=== PATIENT | female | born 1975 | race Caucasian/White ===

== ENCOUNTER 2017-04-15 22:10 | Emergency (ER) | payer OTHER ==
[~2017-04-15] VITALS: Ht 152.4 cm; Wt 54.4 kg
[2017-04-15 22:15] VITALS: BP 128/75
--- NOTE | 2017-04-15 22:43 | NUR ---
AMBULATED TO ER BED 7
--- NOTE | 2017-04-15 22:53 | NUR ---
PATIENT PRESENTS TO ED WITH RT LEG PAIN , REDNESS, SWELLING, FOR A WEEK . PT STATES SHE LOST HER ANTIBIOTIC AND HER CELLULITIS GOT WORST . DENIES N/V/D; SKIN IS PINK/WARM/DRY; AAOX4 WITH EVEN AND STEADY GAIT; LUNGS CLEAR BL; HR EVEN AND REGULAR; PT DENIES ANY FEVER, CP, SOB, OR COUGH AT THIS TIME; PATIENT STATES PAIN OF 10/10 AT THIS TIME;PATIENT POSITIONED FOR COMFORT; HOB ELEVATED; BEDRAILS UP X2; BED DOWN. ER MD MADE AWARE OF PT STATUS.
[2017-04-15] MEDS ORDERED: HYDROcodone/APAP 5/325 MG 1 TAB TAB PO ONE (23:10)
--- NOTE | 2017-04-15 23:23 | NUR ---
PT RESTING ON BED;NO ACUTE DISTRESS NOTED;WILL CONTINUE TO MONITOR PT.
[2017-04-15 23:28] VITALS: BP 124/76
--- NOTE | 2017-04-15 23:28 | NUR ---
Patient discharged with v/s stable. Written and verbal after care instructions given and explained. Patient alert, oriented and verbalized understanding of instructions. Ambulatory with steady gait. All questions addressed prior to discharge. ID band removed. Patient advised to follow up with PMD. Rx of CLINDAMYCIN AND NAPROSYN given. Patient educated on indication of medication including possible reaction and side effects. Opportunity to ask questions provided and answered.
== END 2017-04-15 23:29 | disposition home or self-care (01) ==
LOC: MED 22:10
DX: L03.115 Cellulitis of right lower limb (principal); Z90.49 Acquired absence of other specified parts of digestive tract
CPT/HCPCS: 90471; 90715; 99283

== ENCOUNTER 2017-04-23 12:14 | Emergency (ER) | payer OTHER ==
[~2017-04-23] VITALS: Ht 152.4 cm; Wt 54.4 kg
[2017-04-23 12:24] VITALS: BP 123/88
--- NOTE | 2017-04-23 13:34 | NUR ---
WHEELCHAIR BACK TO BED 7
--- NOTE | 2017-04-23 13:35 | NUR ---
Note undone in EDM - 04/23/17 at 1746 by [email or web address] 41F BIB FRIENDS C/O RT LOWER LEG PAIN X 2 WEEKS S/P HITTING LEG RECYCLING. HX: PT DENIES RX: ANTIBIOTIC FROM PREVIOUS VISIT. SKIN IS PINK/WARM/DRY; AAOX4 WITH EVEN AND STEADY GAIT; LUNGS CLEAR BL; HR EVEN AND REGULAR; PATIENT STATES PAIN OF 10/10 AT THIS TIME; VSS; PATIENT POSITIONED FOR COMFORT; HOB ELEVATED; BEDRAILS UP X2; BED DOWN. ER MD MADE AWARE OF PT STATUS.
--- NOTE | 2017-04-23 13:44 | NUR ---
PT TAKEN TO X RAY
--- NOTE | 2017-04-23 14:10 | NUR ---
Patient being evaluated by SERGEY DOZIER at bedside.
[2017-04-23] MEDS ORDERED: diphenhydrAMINE 50 MG/ML VIAL IVP ONE (14:15)
[2017-04-23] MEDS ORDERED: MORPHINE SULFATE 5 MG/ML VIAL IM ONE (14:15)
[2017-04-23] MEDS ORDERED: VANCOMYCIN 1,000 MG in DEXTROSE 5% 250 ML IV ONE (14:15)
[2017-04-23] MEDS ORDERED: MORPHINE SULFATE 5 MG/ML VIAL IVP ONE (14:30)
[2017-04-23] MEDS ORDERED: VANCOMYCIN 1,000 MG VIAL ONE (14:35)
[2017-04-23] MEDS ORDERED: LIDOCAINE 1% ED 50 ML ONE ×2 (15:09→18:16)
[2017-04-23] MEDS ORDERED: ONDANSETRON 4 MG ODT PO ONE (15:15)
[2017-04-23] MEDS ORDERED: LIDOCAINE 1% 500 MG/50 ML VIAL INJ ONE (15:15)
[2017-04-23 15:39] LABS: BASOPHILS # (AUTO) 0.1 K/uL (0.00-0.22); BASOPHILS % (AUTO) 1.1 % (0.0-2.0); EOSINOPHILS # (AUTO) 0.2 K/uL (0-0.4); HEMATOCRIT 36.1 % (36-48); HEMOGLOBIN 11.6 g/dL (12.0-16.0); LYMPHOCYTES # (AUTO) 1.6 K/uL (2.5-16.5); MEAN CORPUSCULAR HEMOGLOBIN 26 pg (27-31); MEAN CORPUSCULAR HGB CONC 32 g/dL (33-37); MEAN CORPUSCULAR VOLUME 81 fL (80-94); MONOCYTES # (AUTO) 0.5 K/uL (0.8-1.0); MONOCYTES % (AUTO) 5.3 % (1.7-9.3); NEUTROPHILS % (AUTO) 74.6 % (42.2-75.2); PLATELET COUNT (AUTO) 380 K/uL (140-450); RED BLOOD CELL COUNT(AUTO) 4.47 MIL/uL (4.20-5.40); RED CELL DISTRIBUTION WIDTH 15.3 % (11.6-13.7); WHITE BLOOD COUNT (AUTO) 9.4 K/uL (4.8-10.8)
[2017-04-23] MEDS ORDERED: NACL 0.9% 1,000 ML IV ONE (15:40)
[2017-04-23 15:48] LABS: ALBUMIN 3.9 g/dL (3.4-5.0); ANION GAP 11.1 (8-16); CALCIUM 8.8 mg/dL (8.5-10.1); CARBON DIOXIDE 28.9 mmol/L (21-32); CREATININE 0.6 mg/dL (0.6-1.3); TOTAL BILIRUBIN 0.4 mg/dL (0.0-1.0); TOTAL PROTEIN, SERUM 8.5 g/dL (6.4-8.2)
--- NOTE | 2017-04-23 15:50 | NUR ---
I&D DONE BY SERGEY DOZIER. PT TOLERATED PROCEDURE WELL.
[2017-04-23] MEDS ORDERED: MORPHINE SULFATE 4 MG/ML SYR IVP ONE ×2 (16:05→17:50)
--- NOTE | 2017-04-23 16:20 | NUR ---
WOUND CARE DONE BY JEANNIE PEACE.
--- NOTE | 2017-04-23 16:28 | NUR ---
X RAY AT BEDSIDE.
--- NOTE | 2017-04-23 17:20 | NUR ---
Patient appears to be resting comfortably in bed. Vital Signs within normal limits. Respirations even and unlabored.WILL CONTINUE TO MONITOR.
--- NOTE | 2017-04-23 17:46 | NUR ---
41F BIB FRIENDS C/O OPEN WOUND & ABSCESS TO RT SCHWARTZ PAIN X 2 WEEKS S/P HITTING LEG RECYCLING. HX: PT DENIES RX: ANTIBIOTIC FROM PREVIOUS VISIT. AAOX4 WITH EVEN AND STEADY GAIT; LUNGS CLEAR BL; HR EVEN AND REGULAR; PATIENT STATES PAIN OF 10/10 AT THIS TIME; VSS; PATIENT POSITIONED FOR COMFORT; HOB ELEVATED; BEDRAILS UP X2; BED DOWN. ER MD MADE AWARE OF PT STATUS.
--- NOTE | 2017-04-23 17:59 | NUR ---
PT STS 0/10 PAIN TO R SCHWARTZ . GAVE MORPHINE 3MG IV ORDER BEFORE WOUND CARE.
--- NOTE | 2017-04-23 18:13 | NUR ---
WOUND CARE DONE BY THONY ROSALES & EMT CARLO. PT TOLERATED PROCEDURE WELL.
--- NOTE | 2017-04-23 18:34 | NUR ---
Crutches dispensed. Taught proper use, patient returned demo. Addendum: 04/23/17 at 1848 by [facility] CRUTCHES DONE BY JEANNIE MATOS.
[2017-04-23 18:39] VITALS: BP 112/72
--- NOTE | 2017-04-23 18:40 | NUR ---
Patient discharged with v/s stable. Written and verbal after care instructions given and explained. Patient alert, oriented and verbalized understanding of instructions. Wheel Chair Assisted with UNsteady gait. All questions addressed prior to discharge. ID band removed. Patient advised to follow up with PMD. Rx of NORCO, KEFLEX, & SEPTRA DS given. Patient educated on indication of medication including possible reaction and side effects. Opportunity to ask questions provided and answered.
== END 2017-04-23 18:40 | disposition home or self-care (01) ==
LOC: MED 12:14
DX: L02.415 Cutaneous abscess of right lower limb (principal); Z90.49 Acquired absence of other specified parts of digestive tract
CPT/HCPCS: 36415; 73590; 80053; 81002; 81025; 83690; 85025; 87070; 87075; 96365; 96366; 96375; 96376; 99285; J1200; J2001; J2270; J3370; J7030; J7060; Q0092; S0119

== ENCOUNTER 2017-04-23 22:39 | Inpatient (IN) | payer OTHER ==
[~2017-04-23] VITALS: Ht 152.4 cm; Wt 54.4 kg
[2017-04-23 22:56] VITALS: BP 127/87
--- NOTE | 2017-04-23 23:59 | NUR ---
PT TAKEN TO OF2
--- NOTE | 2017-04-24 00:02 | NUR ---
Dr. Hartman evaluating patient
[2017-04-24] MEDS ORDERED: NACL 0.9% 1,000 ML IV ONE (00:05)
[2017-04-24] MEDS ORDERED: ONDANSETRON 4 MG/2 ML VIAL IVP ONE (00:05)
[2017-04-24 00:18] LABS: HEMATOCRIT 33.4 % (36-48); HEMOGLOBIN 10.5 g/dL (12.0-16.0); MEAN CORPUSCULAR HEMOGLOBIN 26 pg (27-31); MEAN CORPUSCULAR HGB CONC 32 g/dL (33-37); MEAN CORPUSCULAR VOLUME 82 fL (80-94); PLATELET COUNT (AUTO) 351 K/uL (140-450); RED CELL DISTRIBUTION WIDTH 15.3 % (11.6-13.7); WHITE BLOOD COUNT (AUTO) 12.5 K/uL (4.8-10.8)
--- NOTE | 2017-04-24 00:20 | NUR ---
PT AMBULATED TO BED 6 FROM OVERFLOW 2 WITHOUT ASSISTANCE
[2017-04-24 00:23] LABS: APPEARANCE,URINE CLOUDY (CLEAR); BILIRUBIN,URINE NEGATIVE (NEGATIVE); BLOOD, URINE NEGATIVE (NEGATIVE); COLOR,URINE YELLOW (YELLOW); LEUKOCYTE ESTERASE ,URINE NEGATIVE (NEGATIVE); NITRITE, URINE NEGATIVE (NEGATIVE); PROTEIN,URINE TRACE (NEGATIVE); UGLUCOSE NEGATIVE (NEGATIVE); UROBILINOGEN,URINE 0.2 EU/dL (0.2 - 1)
[2017-04-24 00:30] LABS: BAND % (MANUAL) 7 % (0-8); LYMPHOCYTES % (MANUAL) 4 % (20-46); MONOCYTES % (MANUAL) 1 % (5-12); NEUTROPHILS % (MANUAL) 88 (43-65)
[2017-04-24 00:32] LABS: ANION GAP 11.9 (8-16); CALCIUM 8.6 mg/dL (8.5-10.1); CARBON DIOXIDE 24.6 mmol/L (21-32); CREATININE 0.6 mg/dL (0.6-1.3); POTASSIUM 4.5 mmol/L (3.5-5.1)
[2017-04-24 00:43] LABS: ALBUMIN 3.6 g/dL (3.4-5.0); TOTAL PROTEIN, SERUM 8.1 g/dL (6.4-8.2)
[2017-04-24 00:46] LABS: BACTERIA,URINE 3+ /HPF (None Seen); MUCUS,URINE 4+ /LPF (None Seen); RBC,URINE 0-5 (RARE) /HPF (0-5); WBC,URINE 0-5 (RARE) /HPF (0-5)
--- NOTE | 2017-04-24 00:55 | NUR ---
41/F c/o N/V. Pt was just d/c earlier today s/p I&D to right [place]. Pt states "I never left." No vomiting noted. AOX4, ambulates with assist. Pt has a dressing to right lower leg s/p I&D with packing in place. Pt states she hit her led over a period of time. Discoloration noted, dark red, brown in color, open wound noted to right lower leg, approximately dime sized, no drainage noted. Wound appears yellow. VSS. Pt placed in position of comfort, warm blanket provided. All needs addressed.
[2017-04-24] MEDS ORDERED: ACETAMINOPHEN 325 MG TAB PO PRN (01:20)
[2017-04-24] MEDS ORDERED: LORazepam 2 MG/ML VIAL IVP PRN (01:20)
[2017-04-24] MEDS ORDERED: cefTRIAXone 1,000 MG VIAL ONE (01:37)
--- NOTE | 2017-04-24 01:40 | NUR ---
Patient appears to be resting comfortably in bed. VSS.
--- NOTE | 2017-04-24 02:03 | NUR ---
Patient will be admitted to care of Dr. Pj Pierre. Admited to Med/Surg. Will go to room 112-B. Belongings list completed. Report to Renard GORMAN.
[2017-04-24 02:30] VITALS: BP 118/74
--- NOTE | 2017-04-24 02:30 | NUR ---
PATIENT ADMITTED TO THE UNIT FROM THE ED. PATIENT ALERT, AWAKE, AND ORIENTED. PATIENT IS AMBULATORY. NO S/SX OF DISTRESS NOTED. NO COMPLAINTS OF PAIN AT THIS TIME. WOUND DRESSING NOTED ON THE RIGHT SCHWARTZ. DRESSING IS CLEAN, DRY AND INTACT. IV ACCESS NOTED ON LEFT HAND. BED IS IN LOWEST POSITION WITH SIDE RAILS UP. CALL LIGHT IS WITHIN REACH. WILL CONTINUE TO MONITOR.
[2017-04-24] MEDS: DEXT 5% /NACL 0.9% 1,000 ML IV SCH ×3 (02:41→23:19)
[2017-04-24] MEDS: LEVOFLOXACIN 750 MG/D5W PREMIX 150 ML IV SCH (02:42)
[2017-04-24] MEDS: MORPHINE SULFATE 2 MG/ML SYR IVP PRN ×2 (07:19→16:54)
--- NOTE | 2017-04-24 07:21 | NUR ---
PATIENT REPORT ENDORSED TO MORNING NURSE. PATIENT COMPLAINED OF 10/10 PAIN. PATIENT MEDICATED.
--- NOTE | 2017-04-24 07:22 | NUR ---
RECEIVED BEDSIDE REPORT FROM SURGICAL SCHEDULER NURSEЕЛЕНА. PATIENT AWAKE AND ALERT, NO SIGNS OF ACUTE DISTRESS. BOWEL SOUNDS ACTIVE IN ALL 4 QUADRANTS. BOWEL AND BLADDER CONTINENCE. ABSCESS ON RT SCHWARTZ, S/P RIGHT SCHWARTZ I&D 04/23/17. ON ROOM AIR. AMBULATORY WITH BRP. IV PATENT AND ASYMPTOMATIC. PT C/O PAIN IN RIGHT LEG, WILL MEDICATE. RE-ORIENTED TO HOSPITAL AND TO UNIT, PATIENT VERBALIZES UNDERSTANDING. BED IN LOW POSITION WITH BILATERAL HALF SIDE RAILS UP, CALL LIGHT WITHIN REACH.
[2017-04-24 08:00] VITALS: BP 107/59
[2017-04-24] MEDS: ONDANSETRON 4 MG/2 ML VIAL IVP PRN ×2 (08:08→19:21)
--- NOTE | 2017-04-24 08:08 | NUR ---
PT COMPLAINING OF NAUSEA, ADMINISTERED ZOFRAN PRN ORDERED. WILL CONTINUE TO MONITOR.
--- NOTE | 2017-04-24 08:09 | NUR ---
PATIENT HAS BEEN SCREENED AND CATEGORIZED HIGH NUTRITION RISK. PATIENT WILL BE SEEN WITHIN 1-2 DAYS OF ADMISSION. 04/24/17-04/25/[address]
--- NOTE | 2017-04-24 10:36 | NUR ---
CM NOTE INITIAL REVIEW FAXED TO [facility] [phone] PH ENRIQUE [phone] FEBRUARY [phone]
--- NOTE | 2017-04-24 10:53 | NUR ---
04/24/17 RD INITIAL ASSESSMENT COMPLETED PLEASE REFER TO NUTRITION ASSESSMENT UNDER CARE ACTIVITY FOR ESTIMATED NUTRITIONAL NEEDS. 1. CONTINUE REGULAR DIET 2. ADD VITAMIN C (250 MG) 1X/DAILY 3. RD TO FOLLOW-UP MODERATE RISK, 3-[address]
[2017-04-24] MEDS: HYDROcodone/APAP 5/325 MG 1 TAB TAB PO PRN ×2 (10:58→23:19)
--- NOTE | 2017-04-24 12:38 | NUR ---
PT SEEN BY Noel MUÑOZ RECEIVED NEW ORDERS, NOTED. WILL CARRY OUT.
--- NOTE | 2017-04-24 14:05 | NUR ---
PT SLEEPING, NO SIGNS OF ACUTE DISTRESS. FRIEND AT BEDSIDE. BED IN LOW POSITION WITH BILATERAL HALF SIDE RAILS UP, CALL LIGHT WITHIN REACH. WILL CONTINUE TO MONITOR.
[2017-04-24 16:00] VITALS: BP 98/54
--- NOTE | 2017-04-24 19:15 | NUR ---
PT AWAKE AND ALERT, NO SIGNS OF ACUTE DISTRESS. ENDORSED TO BEAUTY PARLOR CLEANER NURSE, ЕЛЕНА, FOR CONTINUITY OF CARE.
--- NOTE | 2017-04-24 19:15 | NUR ---
PATIENT REPORT RECEIVED AT BEDSIDE FROM MORNING NURSE. PATIENT IS ALERT, AWAKE, AND ORIENTED. NO COMPLAINTS OF PAIN AT THIS TIME. IV SITE IS ASYMPTOMATIC AND PATENT. BED IS IN LOWEST POSITION WITH BILATERAL SIDE RAILS UP. CALL LIGHT WITHIN REACH. PATIENT COMPLAINED OF NAUSEA. WILL MEDICATE.
--- NOTE | 2017-04-24 22:00 | NUR ---
CHECKED ON PATIENT. PATIENT IS ASLEEP. NO SIGNS AND SYMPTOMS OF DISTRESS. BED IN LOWEST POSITION AND CALL LIGHT WITHIN REACH. WILL CONTINUE TO MONITOR
[2017-04-25] VITALS: BP 97/57
--- NOTE | 2017-04-25 | NUR ---
CHECKED ON PATIENT. PATIENT IS ASLEEP. NO SIGNS AND SYMPTOMS OF DISTRESS. BED IN LOWEST POSITION AND CALL LIGHT WITHIN REACH. WILL CONTINUE TO MONITOR
[2017-04-25] MEDS: LEVOFLOXACIN 750 MG/D5W PREMIX 150 ML IV SCH (01:49)
[2017-04-25] MEDS: ONDANSETRON 4 MG/2 ML VIAL IVP PRN ×2 (03:37→15:47)
[2017-04-25] MEDS: HYDROcodone/APAP 5/325 MG 1 TAB TAB PO PRN ×3 (03:43→18:42)
--- NOTE | 2017-04-25 03:43 | NUR ---
PATIENT C/O 10/10 LEG PAIN. PATIENT REFUSED TO HAVE ORDERED MEDICATION FOR SEVERE PAIN AND REQUESTED FOR NORCO. NORCO ADMINISTERED. WILL CONTINUE TO MONITOR
--- NOTE | 2017-04-25 05:25 | NUR ---
BLEEDING NOTED ON THE PATIENT'S RIGHT LEG WOUND DRESSING. DRESSING CHANGED. WOUND PACKING KEPT INTACT. PATIENT C/O PAIN BUT REFUSES PAIN MEDICATION AT THIS TIME. WILL CONTINUE TO MONITOR
[2017-04-25 05:27] LABS: BASOPHILS # (AUTO) 0.1 K/uL (0.00-0.22); BASOPHILS % (AUTO) 1.4 % (0.0-2.0); EOSINOPHILS # (AUTO) 0.1 K/uL (0-0.4); EOSINOPHILS % (AUTO) 1.8 % (0.0-4.0); HEMOGLOBIN 8.9 g/dL (12.0-16.0); LYMPHOCYTES # (AUTO) 1.4 K/uL (2.5-16.5); LYMPHOCYTES % (AUTO) 24.6 % (20.5-51.1); MEAN CORPUSCULAR HEMOGLOBIN 26 pg (27-31); MEAN CORPUSCULAR HGB CONC 32 g/dL (33-37); MEAN CORPUSCULAR VOLUME 82 fL (80-94); MONOCYTES # (AUTO) 0.3 K/uL (0.8-1.0); MONOCYTES % (AUTO) 5.2 % (1.7-9.3); NEUTROPHILS # (AUTO) 3.7 K/uL (1.8-7.7); PLATELET COUNT (AUTO) 328 K/uL (140-450); RED BLOOD CELL COUNT(AUTO) 3.43 MIL/uL (4.20-5.40); RED CELL DISTRIBUTION WIDTH 15.8 % (11.6-13.7); WHITE BLOOD COUNT (AUTO) 5.6 K/uL (4.8-10.8)
[2017-04-25 06:02] LABS: ALBUMIN 2.5 g/dL (3.4-5.0); CARBON DIOXIDE 26.8 mmol/L (21-32); CREATININE 0.6 mg/dL (0.6-1.3); POTASSIUM 3.8 mmol/L (3.5-5.1); TOTAL BILIRUBIN 0.2 mg/dL (0.0-1.0); TOTAL PROTEIN, SERUM 6.3 g/dL (6.4-8.2)
--- NOTE | 2017-04-25 07:27 | NUR ---
PATIENT REPORT GIVEN AT BEDSIDE. PATIENT ASLEEP. NO SIGNS AND SYMPTOMS OF DISTRESS. PATIENT IN STABLE CONDITION
--- NOTE | 2017-04-25 07:28 | NUR ---
RECEIVED REPORT FROM THE RECEIVING TANK OPERATOR NURSE AT BEDSIDE FOR CONTINUITY OF CARE. PT IS SLEEPING SOUNDLY. TRIED CALLING OUT HER NAME. SHE IS COMPLETELY IN A DEEP SLEEP. WILL COME BACK AND ASSESS PT.
--- NOTE | 2017-04-25 07:55 | NUR ---
PT SLEEPING, BUT WOKE HER UP. BREAKFAST TRAY IS HERE. INTRODUCED MYSELF AND UPDATED THE BOARD. V/S WITHIN NORMAL RANGE. PT HAS AN IV IN L HAND 24G, D5 NS AT 100ML INFUSING. NO SIGNS OF REDNESS OR INFILTRATION. DRY AND PATENT. NOTED THE L SCHWARTZ DRESSING. S/P I & D ON 04/23. TODAY'S PLAN: CONSULT W/ DR. Jasper BANDA. WILL ASK ABOUT WOUND CARE.
[2017-04-25 08:00] VITALS: BP 116/63
[2017-04-25] MEDS: ASCORBIC ACID 500 MG TAB PO SCH (08:58)
[2017-04-25] MEDS: MORPHINE SULFATE 2 MG/ML SYR IVP PRN (11:00)
--- NOTE | 2017-04-25 11:00 | NUR ---
ADMINISTERED MORPHINE PRIOR TO WOUND CARE, PER NURSE REQUEST. PT TOLERATED WELL. WOUND CARE NURSE IS HERE TO ASSESS AND CHANGE DRESSING.
--- NOTE | 2017-04-25 11:16 | NUR ---
CM NOTE CONCURRENT REVIEW FAXED TO [facility] [phone] PH ENRIQUE [phone] FEBRUARY [phone]
[2017-04-25] MEDS: DEXT 5% /NACL 0.9% 1,000 ML IV SCH ×3 (12:07→23:18)
--- NOTE | 2017-04-25 12:52 | NUR ---
PT DOING BETTER. NO COMPLAINTS OF PAIN. PT IS RESTING COMFORTABLY WITH SIGNIFICANT OTHER AT BEDSIDE. REQUESTED SALTINE CRACKERS. GAVE HER SOME. WILL CONTINUE TO MONITOR PT.
--- NOTE | 2017-04-25 13:45 | NUR ---
WOUND CARE EVALUATION NOTES: REASON FOR EVALUATION: RLE ABSCESS S/P I&D COMPLETE SKIN ASSESSMENT DONE ON THIS 41 Y/O FEMALE PATIENT TO [facility], WITH INITIAL DIAGNOSIS OF NAUSEA AND EMESIS. PAST MEDICAL HISTORY IS NEGATIVE. PAST SURGICAL HISTORY OF I&D RLE ABSCESS AND MULTIPLE C-SECTIONS. ALL ABOVE INFORMATION WAS OBTAINED FROM THE ADMISSION H&P. LABS ARE WBC 5.6, H/H 8.9/28.0, GLUCOSE 97, ALBUMIN 2.5. CURRENT MEDS INCLUDE LEVOFLOXACIN, CEFTRIAXONE, LORAZEPAM, HYDROCODONE AND MORPHINE. PATIENT IS AWAKE, ALERT, ORIENTED TO PERSON, PLACE, DATE AND TIME. SKIN WARM AND DRY TO TOUCH WNL, TOENAILS WNL, WITH HAIR GROWTH, NO EDEMA BLE AND +3 BILATERAL PEDAL PULSES. URINE AND BOWEL CONTINENT, ABLE TO AMBULATE TO THE RESTROOM CLAIMED. ABLE TO TURN SELF WITHOUT ASSISTANCE. INITIAL PLAN OF CARE AND PRESSURE PREVENTIVE MEASURES DISCUSSED WITH PT AND ABLE TO VERBALIZE UNDERSTANDING. INTEGUMENTARY: -RLE ABSCESS S/P I&D 3X5X0.5 WITH MODERATE AMOUNT OF SEROSANGUINOUS DRAINAGE. RADHA-WOUND RED AND WARM TO TOUCH. PT C/O WHEN TOUCHED -RIGHT UPPER THIGH DRY SCAB PINK IN COLOR. RECOMMENDATIONS - CLEANSE RLE ABSCESS WITH NS. PACK WITH IODOFORM COVER WITH DRY DRESSING AND SECURE WITH TAPE BID AND PRN WHEN SOILING -OFFLOAD BILATERAL HEELS BY PLACING PILLOWS UNDER CALVES AT ALL TIMES, UNLESS OTHERWISE CONTRAINDICATED -KEEP SKIN CLEAN AND DRY AT ALL TIMES. -DIETARY CONSULT: LOW ALBUMIN LEVEL. RECOMMENDATIONS DISCUSSED WITH PRIMARY RN. WILL FOLLOW UP PATIENT Q 7-10 DAYS AND PRN. PLEASE CONTACT WOUND CARE NURSE FOR ANY CONCERNS, QUESTIONS AND CHANGES IN SKIN CONDITION.
--- NOTE | 2017-04-25 14:34 | NUR ---
PT RESTING COMFORTABLY. NO SIGNS OF DISTRESS. SIGNIFICANT OTHER AT BEDSIDE. WILL CONTINUE TO MONITOR PT.
[2017-04-25 16:00] VITALS: BP 104/60
--- NOTE | 2017-04-25 17:06 | NUR ---
PT IS SLEEPING. NO SIGNS OF DISTRESS. SIGNIFICANT OTHER AT BEDSIDE. WILL CONTINUE TO MONITOR PT.
--- NOTE | 2017-04-25 19:20 | NUR ---
ENDORSED PT TO THE SIEBEL CRM DEVELOPER NURSE AT BEDSIDE FOR CONTINUITY OF CARE. PT IS IN STABLE CONDITION. PT IS SLEEPING. SIGNIFICANT OTHER AT BEDSIDE.
--- NOTE | 2017-04-25 19:30 | NUR ---
RECEIVED PT FROM RICHI RN PT IS AAOX4 AMBULATORY IV ON LEFT HAND INFUSING WELL S/P RT LLEG LANA I AND D, RELATIVE AT BED SIDE INITIAL ASSESSMENT DONE
[2017-04-25 20:00] VITALS: BP 94/56
--- NOTE | 2017-04-25 22:00 | NUR ---
PT VOIDING WELL DENIES ANY PAIN OR DISCOMFORT AT THIS TIME IV ON LEFT HAND INFUSING WELL
[2017-04-26] VITALS: BP 95/57
[2017-04-26] MEDS: LEVOFLOXACIN 750 MG/D5W PREMIX 150 ML IV SCH (00:44)
--- NOTE | 2017-04-26 01:14 | NUR ---
PT SLEEPING WELL NOT DISTRESS NOTED
--- NOTE | 2017-04-26 04:41 | NUR ---
SPONGE BATH GIVEN LINEN CHANGED VOIDING WELL DENIES ANYPAIN OR DISCOMFORT
--- NOTE | 2017-04-26 06:00 | NUR ---
PT SLEEPING WELL DENIES ANY PAIN OR DISCOMFORT
[2017-04-26 06:46] LABS: BASOPHILS # (AUTO) 0.1 K/uL (0.00-0.22); EOSINOPHILS # (AUTO) 0.1 K/uL (0-0.4); EOSINOPHILS % (AUTO) 1.5 % (0.0-4.0); HEMOGLOBIN 9.2 g/dL (12.0-16.0); LYMPHOCYTES # (AUTO) 1.5 K/uL (2.5-16.5); LYMPHOCYTES % (AUTO) 38.5 % (20.5-51.1); MEAN CORPUSCULAR HEMOGLOBIN 26 pg (27-31); MEAN CORPUSCULAR HGB CONC 32 g/dL (33-37); MEAN CORPUSCULAR VOLUME 82 fL (80-94); MONOCYTES # (AUTO) 0.2 K/uL (0.8-1.0); MONOCYTES % (AUTO) 5.2 % (1.7-9.3); NEUTROPHILS % (AUTO) 52.8 % (42.2-75.2); PLATELET COUNT (AUTO) 322 K/uL (140-450); RED BLOOD CELL COUNT(AUTO) 3.53 MIL/uL (4.20-5.40); RED CELL DISTRIBUTION WIDTH 15.6 % (11.6-13.7); WHITE BLOOD COUNT (AUTO) 3.9 K/uL (4.8-10.8)
[2017-04-26 07:09] LABS: ALBUMIN 2.4 g/dL (3.4-5.0); CREATININE 0.6 mg/dL (0.6-1.3); TOTAL BILIRUBIN 0.2 mg/dL (0.0-1.0); TOTAL PROTEIN, SERUM 6.2 g/dL (6.4-8.2)
[2017-04-26 07:14] LABS: ANION GAP 8.2 (8-16); CARBON DIOXIDE 29.3 mmol/L (21-32); POTASSIUM 3.5 mmol/L (3.5-5.1)
--- NOTE | 2017-04-26 07:15 | NUR ---
PT IS ENDORSED TO JOANN CEDILLO CONTINUITY OF CARE
--- NOTE | 2017-04-26 07:17 | NUR ---
RECEIVED PATIENT REPORT AT BEDSIDE FROM NIGHT NURSE. PATIENT IS AAOX4 AND SHOWS NO S/S OF DISTRESS ON ROOM AIR. NOTED DRESSING ON THE R LOWER EXTREMITY INTACT. IV NOTED ON THE L H WITH IVF'S INFUSING WELL. PATIENT STATES LBM WAS ON Friday04/19/[address] SHEFFIELD FOR STOOL SOFTNER ORDERS. PATIENT WAS EXPLAINED POC FOR TODAY AND VERBALIZED UNDERSTANDING. BED IS LOWERED WITH CALL LIGHT WITHIN REACH. PATIENT VERBALIZED UNDERSTANDING ON HOW TO USE IT. WILL CONTINUE TO MONITOR.
[2017-04-26 08:00] VITALS: BP 115/71
[2017-04-26] MEDS: ASCORBIC ACID 500 MG TAB PO SCH (09:01)
--- NOTE | 2017-04-26 09:01 | NUR ---
ADMINISTERED SCHEDULED MEDICATIONS. PATIENT TOLERATED WELL. PT WAS C/O 8/10 RLE PAIN HOWEVER DOES ON WANT PRN PAIN MEDICATION MORPHINE 2MG IVP. PATIENT ASKED TO GIVE HER NORCO 5/325MG PO INSTEAD WITH A STOOL SOFTENER. WILL PAGE DR SHEFFIELD FOR NEW ORDER FOR STOOL SOFTENER. PATIENT SHOWS NO S/S DISTRESS ON ROOM AIR. THE BED IS LOWERED WITH CALL LIGHT WITHIN REACH.
--- NOTE | 2017-04-26 09:30 | NUR ---
PATIENT IS AWARE THERE IS AN ORDER FOR OCCULT BLOOD. PATIENT REFUSED TO HAVE BM EXAMINED. PATIENT DENIES HAVING BM. LBM WAS 04/19/17. WILL NOTIFY
[2017-04-26] MEDS ORDERED: POLYETHYLENE GLYCOL 17 GM/PKT PO PRN (10:05)
--- NOTE | 2017-04-26 11:00 | NUR ---
PATIENT IS SLEEPING AND SHOWS NO S/S OF DISTRESS ON ROOM AIR. PATIENT HAS FAMILY AT BEDSIDE.
--- NOTE | 2017-04-26 13:00 | NUR ---
PATIENT WAS ASKED IF A DRESSING CHANGED CAN BE PERFORMED PATIENT REFUSED AND SAID SHE WILL LATER TODAY. WILL CONTINUE TO MONITOR.
[2017-04-26] MEDS: HYDROcodone/APAP 5/325 MG 1 TAB TAB PO PRN (13:11)
--- NOTE | 2017-04-26 13:11 | NUR ---
ADMINISTERED MIRALAX 17 GM PO FOR CONSTIPATION PATIENT ASKED TO GIVE NORCO 5/325 MG PO FOR PAIN LEVEL OF 6/10 AT THE RLE.
[2017-04-26] MEDS: ONDANSETRON 4 MG/2 ML VIAL IVP PRN (13:17)
[2017-04-26] MEDS: DEXT 5% /NACL 0.9% 1,000 ML IV SCH (13:20)
--- NOTE | 2017-04-26 13:26 | NUR ---
PATIENT C/O 6/10 RLE PAIN. ADMINISTERED PRN PAIN MEDICATION NORCO 5/325 MG PO. PATIENT THEN C/O NAUSEA WHEN ADMINISTERING ZOFRAN 4 MG IVP PATIENT C/O BURNING AND PAIN AT IV SITE. IV WAS DISCONTINUE WITH CANNULA INTACT. PATIENT REFUSES TO GET NEW IV RIGHT NOW. WILL TRY AGAIN LATER. WILL NOTIFY MD. WILL CONTINUE TO MONITOR.
--- NOTE | 2017-04-26 13:26 | NUR ---
PATIENT ONLY RECEIVED APPROXIMATELY ZOFRAN 1 MG IVP FOR NAUSEA. DURING ADMINISTRATION IV HAS BURNING AND PATIENT ASKED TO STOP MEDICATION ADMINISTRATION. PAGED DR SHEFFIELD FOR ALTERNATIVE NAUSEA MEDICATION THAT IS PO.
--- NOTE | 2017-04-26 13:40 | NUR ---
DR SHEFFIELD ORDERED ZOFRAN 4M PO Q6H PRN FOR NAUSEA.
[2017-04-26] MEDS ORDERED: ONDANSETRON 4 MG TAB PO PRN (13:45)
--- NOTE | 2017-04-26 15:20 | NUR ---
PATIENT WAS GIVEN ZOFRAN 4 MG PO (PLEASE SEE EARLIER NOTE). PATIENT REFUSED TO GET AN IV INSERTED AND REFUSED DRESSING CHANGE. PATIENT IS WATCHING TV AND SHOWS NO S/S OF DISTRESS ON ROOM AIR. WILL CONTINUE TO MONITOR AND WILL ASK AGAIN.
[2017-04-26 16:00] VITALS: BP 115/68
--- NOTE | 2017-04-26 16:15 | NUR ---
PATIENT CONTINUES TO REFUSE NEW IV AND DRESSING CHANGE. PATIENT IS AWARE OF PROS AND CONS FOR INTERVENTIONS. PATIENT WAS EDUCATED ON THE NEED TO HAVE DRESSING CHANGES AND NEW IV FOR MEDICATIONS TO CONTINUE HER THERAPEUTIC REGIMEN AND POC. PATIENT VERBALIZED UNDERSTANDING AND STATES AFTER DINNER SHE WILL BE WILLING TO HAVE INTERVENTIONS. PATIENT IS ALSO C/O PAIN 04/17 HOWEVER SHE ALSO REFUSES PRN PAIN MEDICATION MORPHINE 2 MG IVP AND WOULD LIKE TO WAIT UNTIL PRN PAIN MEDICATION NORCO 5/325 MG PO IS AVAILABLE.
--- NOTE | 2017-04-26 17:25 | NUR ---
SPOKE WITH DR CONWAY REGARDING ORDERS TO DISCONTINUE MORPHINE 2 MG IVP BC PATIENT REFUSES AND ADDED ON NORCO 7.5/325 MG PO PRN Q6H FOR SEVERE PAIN AND ADDED DOCUSATE 100 MG BID. WILL INPUT ORDERS. ASKED DR FIFI BANDA AND DAYANA WERE AWARE OF BEING CONSULTS TO PATIENTS CASE. DR CONWAY MENTIONED HE WOULD ASK DR SHEFFIELD AND WILL CALL IF FURTHER INFORMATION WERE NEEDED.
--- NOTE | 2017-04-26 19:30 | NUR ---
PATIENT AGREED TO HAVE IV INSERTED AT THIS TIME NEW IV WAS INSERTED ON THE L FA 22 G WITH IVF'S INFUSING WELL. PATIENT REPORT WAS GIVEN AT BEDSIDE TO NIGHT NURSE. PATIENT IS AAOX4 AND SHOWS NO S/S OF DISTRESS ON ROOM AIR. THE BED IS LOWERED WITH CALL LIGHT WITHIN REACH.
--- NOTE | 2017-04-26 19:31 | NUR ---
RECEIVED PTFROM JOANN RN PT IS AAOX4 AMBULATORY A NEW IV ON RT FA INFUSING WELL RT LE DRESSING DRY AND INTACT INITIAL ASSESSMENT DONE
[2017-04-26 20:00] VITALS: BP 102/59
[2017-04-26] MEDS: HYDROcodone/APAP 7.5/325 MG 1 TAB PO PRN (20:29)
[2017-04-26] MEDS: DOCUSATE SODIUM 100 MG GELCAP PO SCH (20:29)
--- NOTE | 2017-04-26 22:00 | NUR ---
DR ANNE IS HERE AND SEE THE PT
[2017-04-27] VITALS: BP 92/51
--- NOTE | 2017-04-27 03:17 | NUR ---
PT SLEEPING WELL NOT DISTRESS NOTED AT THIS TIME
--- NOTE | 2017-04-27 06:00 | NUR ---
SPONGE BATH GIVEN LINEN CHANGED DENIES ANY PAIN AT THIS TIME IV ON RT FA INFUSING WELL
--- NOTE | 2017-04-27 07:05 | NUR ---
RECEIVED PATIENT REPORT AT BEDSIDE FROM NIGHT NURSE. PATIENT IS AAOX4 AND SHOWS NO S/S OF DISTRESS ON ROOM AIR. NOTED DRESSING ON THE R LOWER EXTREMITY CLEAN, DRY, AND INTACT. IV NOTED ON THE L FA WITH IVF'S INFUSING WELL. PATIENT STATES NO BM OF YET. DR SHEFFIELD IS AWARE. PATIENT WAS EXPLAINED POC FOR TODAY AND VERBALIZED UNDERSTANDING. BED IS LOWERED WITH CALL LIGHT WITHIN REACH. PATIENT VERBALIZED UNDERSTANDING ON HOW TO USE IT. WILL CONTINUE TO MONITOR.
[2017-04-27] MEDS ORDERED: CEPH250C16 PO (07:19)
--- NOTE | 2017-04-27 07:20 | NUR ---
PATIENT BEING SEEN BY DR SHEFFIELD AND OKAYED TO BE DISCHARGED.
[2017-04-27 07:23] LABS: ALBUMIN 2.6 g/dL (3.4-5.0); ANION GAP 8.8 (8-16); CALCIUM 8.3 mg/dL (8.5-10.1); CARBON DIOXIDE 28.9 mmol/L (21-32); CREATININE 0.6 mg/dL (0.6-1.3); POTASSIUM 3.7 mmol/L (3.5-5.1); TOTAL BILIRUBIN 0.2 mg/dL (0.0-1.0); TOTAL PROTEIN, SERUM 6.4 g/dL (6.4-8.2)
[2017-04-27 08:00] VITALS: BP 101/60
[2017-04-27] MEDS: HYDROcodone/APAP 7.5/325 MG 1 TAB PO PRN (08:01)
--- NOTE | 2017-04-27 08:25 | NUR ---
PATIENT C/O 8/10 RIGHT LOWER EXTREMITY (RLE) PAIN FROM I&D. PATIENT WAS GIVEN NORCO 7.5/325 MG PO UPON DISCHARGE. PATIENT REFUSED MORNING MEDICATIONS. PATIENT WOULD LIKE TO BE DISCHARGED NOW. PATIENT WAS GIVEN ALL DISCHARGE INSTRUCTIONS AND PRESCRIPTIONS. ALL PAPERWORK WAS SIGNED. ALL QUESTIONS ANSWERED. ALL BELONGINGS AND PRESCRIPTIONS IN PATIENT POSSESSION. IV WAS DISCONTINUED WITH CANNULA INTACT. WRISTBANDS WERE REMOVED. DRESSING WAS CHANGED, PLEASE SEE WOUND ASSESSMENT. PATIENT IS HOMELESS AND WAS GIVEN HOMELESS RESOURCE PACKET. PATIENT ASKED FOR A BUS TICKET AND WAS GIVEN DIRECTIONS OF THE CLOSEST BUS STATION. PATIENT WAS GIVEN A WHEELCHAIR. PATIENT AMB WITH STEADY GAIT TO WHEELCHAIR. PATIENT THEN LEFT UNIT IN STABLE CONDITION.
[2017-04-27] MEDS: DOCUSATE SODIUM 100 MG GELCAP PO SCH (08:50)
[2017-04-27] MEDS: ASCORBIC ACID 500 MG TAB PO SCH (08:50)
== END 2017-04-27 08:25 | disposition home or self-care (01) | DRG 720 ==
LOC: MED 22:39 → MTU 04-24 01:19 → UNDOADMIN 04-24 01:19 → UNDODISIN 04-26 11:40
PROVIDERS: ADMIT Hospitalist; ATTEND Hospitalist
DX: A41.9 Sepsis, unspecified organism (principal); E43 Unspecified severe protein-calorie malnutrition; E88.09 Other disorders of plasma-protein metabolism, not elsewhere classified; N10 Acute pyelonephritis; L03.115 Cellulitis of right lower limb; D64.9 Anemia, unspecified; R73.9 Hyperglycemia, unspecified; R74.0 Nonspecific elevation of levels of transaminase and lactic acid dehydrogenase [LDH]; E86.0 Dehydration; Z87.828 Personal history of other (healed) physical injury and trauma; Z90.49 Acquired absence of other specified parts of digestive tract; Z68.23 Body mass index [BMI] 23.0-23.9, adult
CPT/HCPCS: 36415; 76700; 80053; 81001; 82248; 85025; 85651; 86140; 87040; 87081; 87086; 96361; 96365; 96375; 99285; J0696; J1956; J2270; J2405; J7030; J7042; J7060; Q0092; Q0162

== ENCOUNTER 2018-07-21 01:30 | Emergency (ER) | payer MEDICAID ==
[~2018-07-21] VITALS: Ht 152.4 cm; Wt 60.3 kg
[~2018-07-21 01:30] MED LIST: CEPH250C16 PO
[2018-07-21 01:38] VITALS: BP 139/88
--- NOTE | 2018-07-21 01:46 | NUR ---
PT TAKEN TO BED 11
--- NOTE | 2018-07-21 02:05 | NUR ---
PT PRESENTS TO ED WITH RIGHT LOWER LEG PAIN X2 DAYS. SEVERE, THROBBING PAIN 10/10. REDNESS, HEAT, 3+ PITTING EDEMA, AND SMALL POSSIBLE INSECT BITE TO RIGHT ANTERIOR LOWER LEG. VSS AT THIS TIME. AFEBRILE. POSITIONED IN BED FOR COMFORT. ER MD AWARE. CONTINUE TO MONITOR.
[2018-07-21] MEDS ORDERED: NACL 0.9% 1,000 ML IV ONE (02:15)
[2018-07-21] MEDS ORDERED: KETOROLAC 30 MG/ML VIAL IVP ONE (02:15)
[2018-07-21] MEDS ORDERED: VANCOMYCIN 1,000 MG in DEXTROSE 5% 250 ML IV ONE (02:15)
[2018-07-21] MEDS ORDERED: VANCOMYCIN 1,000 MG VIAL ONE (02:42)
[2018-07-21 02:47] LABS: BASOPHILS % (AUTO) 0.9 % (0.0-2.0); EOSINOPHILS # (AUTO) 0.1 K/uL (0-0.4); EOSINOPHILS % (AUTO) 2.6 % (0.0-4.0); HEMATOCRIT 29.1 % (36-48); HEMOGLOBIN 9.1 g/dL (12.0-16.0); LYMPHOCYTES # (AUTO) 1.3 K/uL (2.5-16.5); MEAN CORPUSCULAR HEMOGLOBIN 24 pg (27-31); MEAN CORPUSCULAR HGB CONC 31 g/dL (33-37); MEAN CORPUSCULAR VOLUME 77.8 fL (80-94); MONOCYTES # (AUTO) 0.2 K/uL (0.8-1.0); NEUTROPHILS % (AUTO) 63.5 % (42.2-75.2); PLATELET COUNT (AUTO) 358 K/uL (140-450); RED BLOOD CELL COUNT(AUTO) 3.74 MIL/uL (4.20-5.40); RED CELL DISTRIBUTION WIDTH 17.6 % (11.6-13.7); WHITE BLOOD COUNT (AUTO) 4.7 K/uL (4.8-10.8)
--- NOTE | 2018-07-21 02:53 | NUR ---
PT IN BED, POSITIONED FOR COMFORT. NO SIGNS OF DISTRESS NOTED, WILL CONTINUE TO MONITOR.
[2018-07-21 03:01] LABS: ALBUMIN 3.4 g/dL (3.4-5.0); ANION GAP 11.7 (8-16); CARBON DIOXIDE 31.2 mmol/L (21-32); CREATININE 0.7 mg/dL (0.6-1.3); POTASSIUM 3.9 mmol/L (3.5-5.1); TOTAL BILIRUBIN 0.2 mg/dL (0.0-1.0)
[2018-07-21 03:55] LABS: BARBITURATE, URINE NEG. ng/ml (NEG <=200); BENZODIAZEPINE, URINE NEG. ng/mL (NEG <=200); CANNABINOID, URINE NEG. ng/mL (NEG <=50); COCAINE, URINE NEG. ng/mL (NEG <=300); OPIATE, URINE NEG. ng/mL (NEG <=2000); PHENCYCLIDINE SCREEN,URINE NEG. ng/mL (NEG <=25)
--- NOTE | 2018-07-21 04:09 | NUR ---
PT RETURN FROM CT
[2018-07-21 05:30] VITALS: BP 98/65
--- NOTE | 2018-07-21 05:30 | NUR ---
Patient discharged with v/s stable. Written and verbal after care instructions given and explained. Patient alert, oriented and verbalized understanding of instructions. Ambulatory with steady gait. All questions addressed prior to discharge. ID band removed. Patient advised to follow up with PMD. Rx of Bactrim and Naprosyn given. Patient educated on indication of medication including possible reaction and side effects. Opportunity to ask questions provided and answered.
== END 2018-07-21 05:30 | disposition home or self-care (01) ==
LOC: MED 01:30
DX: L03.115 Cellulitis of right lower limb (principal); Z79.899 Other long term (current) drug therapy
CPT/HCPCS: 36415; 73700; 80053; 80305; 81002; 81025; 83605; 85025; 87040; 96365; 96366; 96375; 99285; J1885; J3370; J7030; J7060

== ENCOUNTER 2019-03-22 15:16 | Inpatient (IN) | payer MEDICAID ==
[~2019-03-22] VITALS: Ht 160 cm; Wt 54.0 kg
[2019-03-22 15:18] VITALS: BP 99/36
--- NOTE | 2019-03-22 15:18 | NUR ---
PT TAKEN TO BED 09 BY WHEELCHAIR.
--- NOTE | 2019-03-22 15:30 | NUR ---
PT C/O SEVERE LLQ ABDOMINAL PAIN, 10/10, SINCE THIS MORNING. COMPANIED WITH NAUSEA AND VOMITING. DENIES DIARRHEA; SKIN IS PINK/WARM/DRY; AAOX4 WITH EVEN AND AMBULATE WITH ASSISTANCE; ABDOMINAL TENDERNESS ON LIGHT AND DEEP PALPATION; VAGINAL BLEEDING NOTICED ON PT'S PANTS AND URINE SAMPLE. PT DENIES ANY FEVER, CP, SOB, OR COUGH AT THIS TIME; PATIENT STATES PAIN IS SHARP OF 10/10 AT THIS TIME; VSS; PATIENT POSITIONED FOR COMFORT; HOB ELEVATED; BEDRAILS UP X1; BED DOWN. ER MD MADE AWARE OF PT STATUS.
--- NOTE | 2019-03-22 16:20 | NUR ---
PT IS OUT FOR CT SCAN.
[2019-03-22] MEDS ORDERED: NACL 0.9% 1,000 ML IV SCH (16:28)
[2019-03-22] MEDS ORDERED: KETOROLAC 30 MG/ML VIAL IVP ONE (16:30)
--- NOTE | 2019-03-22 16:35 | NUR ---
PT IS BACK FROM CT SCAN. VSS.
[2019-03-22 17:07] LABS: BASOPHILS % (AUTO) 0.5 % (0.0-2.0); EOSINOPHILS # (AUTO) 0.1 K/uL (0-0.4); HEMATOCRIT 31.3 % (36-48); LYMPHOCYTES # (AUTO) 1.2 K/uL (2.5-16.5); LYMPHOCYTES % (AUTO) 18.8 % (20.5-51.1); MEAN CORPUSCULAR HEMOGLOBIN 25 pg (27-31); MEAN CORPUSCULAR HGB CONC 32 g/dL (33-37); MEAN CORPUSCULAR VOLUME 78.8 fL (80-94); MONOCYTES # (AUTO) 0.4 K/uL (0.8-1.0); MONOCYTES % (AUTO) 6.4 % (1.7-9.3); NEUTROPHILS # (AUTO) 4.7 K/uL (1.8-7.7); NEUTROPHILS % (AUTO) 73.3 % (42.2-75.2); PLATELET COUNT (AUTO) 256 K/uL (140-450); RED BLOOD CELL COUNT(AUTO) 3.97 MIL/uL (4.20-5.40); RED CELL DISTRIBUTION WIDTH 18.1 % (11.6-13.7); WHITE BLOOD COUNT (AUTO) 6.5 K/uL (4.8-10.8)
[2019-03-22 17:14] LABS: ANION GAP 12.4 (8-16); CARBON DIOXIDE 25.2 mmol/L (21-32); CREATININE 0.6 mg/dL (0.6-1.3); POTASSIUM 3.6 mmol/L (3.5-5.1)
[2019-03-22] MEDS: NACL 0.9% 1,000 ML IV SCH (17:20)
--- NOTE | 2019-03-22 17:20 | NUR ---
DR. NOVOA IS RE-EVALUATING PT AT BEDSIDE.
[2019-03-22 17:21] LABS: ALBUMIN 3.4 g/dL (3.4-5.0); TOTAL BILIRUBIN 0.7 mg/dL (0.0-1.0)
[2019-03-22] MEDS ORDERED: MORPHINE SULFATE 4 MG/ML SYR IVP ONE (17:30)
[2019-03-22] MEDS ORDERED: DOCUSATE SODIUM 100 MG GELCAP PO PRN (17:45)
[2019-03-22] MEDS ORDERED: ACETAMINOPHEN 325 MG TAB PO PRN (17:45)
[2019-03-22] MEDS ORDERED: HYDROcodone/APAP 7.5/325 MG 1 TAB PO PRN (17:45)
[2019-03-22] MEDS ORDERED: ONDANSETRON 4 MG/2 ML VIAL IM/IVP PRN (17:45)
[2019-03-22 18:12] LABS: PROTHROMBIN TIME 11.3 secs (10.8-13.4)
[2019-03-22 18:20] LABS: CHOL/HDL RATIO 2.4 (1-4.5); FREE T4 (FREE THYROXINE) 1.04 ng/dL (0.76-1.46); PHOSPHORUS 4.4 mg/dL (2.5-4.9); THYROID STIMULATING HORMONE 0.87 uIU/mL (0.34-3.74)
--- NOTE | 2019-03-22 18:25 | NUR ---
PATIENT ARRIVED FROM ER VIA GURNEY, PATIENT AMBULATED TO BED ON STEADY GAIT SLOWLY. AOX4. PATIENT DROWSY AND IN PAIN. PATIENT MEDICATED FOR PAIN AT 1738 WITH MORPHINE IVP. RESPIRATIONS EVEN AND UNLABORED ON ROOM AIR. SAFETY PRECAUTION IN PLACE, CALL LIGHT WITHIN REACH, WILL CONTINUE TO MONITOR PATIENT.
--- NOTE | 2019-03-22 18:25 | NUR ---
Patient will be admitted to care of Dr. Chaney. Admited to Med/Surg. Will go to room 105B. Belongings list completed. Report to VITA Mcgee.
[2019-03-22] MEDS ORDERED: KETOROLAC 15 MG/ML VIAL IVP PRN (19:00)
[2019-03-22 19:23] VITALS: BP 100/60
--- NOTE | 2019-03-22 19:23 | NUR ---
RECIEVED PT AAOX4 , NID , IV SITE INTACT AND PATENT , WITH BEARABLE PAIN AT THIS TIME , ADMISSION ASSESSMENT DONE , MRSA SPECIMEN COLLECTED AND SENT TO LAB , SIDE RAILS UP X2 , BED IN LOW POSITION , CALL LIGHT WITHIN REACH , PLAN OF CARE DISCUSSED AND VERBALIZE UNDERSTANDING.WILL CONT. TO MONITOR.
--- NOTE | 2019-03-22 19:23 | NUR ---
REPORT GIVEN TO BOAT MOTOR MECHANIC NURSE AT BEDSIDE FOR CONTINUITY OF CARE. PATIENT IS SLEEPING. DOCTOR IN TO SEE PATIENT.
[2019-03-22 20:47] LABS: APPEARANCE,URINE SL CLOUDY (CLEAR); BILIRUBIN,URINE NEGATIVE (NEGATIVE); BLOOD, URINE 3+ (NEGATIVE); COLOR,URINE BROWN (YELLOW); LEUKOCYTE ESTERASE ,URINE NEGATIVE (NEGATIVE); NITRITE, URINE NEGATIVE (NEGATIVE); PH,URINE 5.5 (5.0-9.0); UGLUCOSE NEGATIVE (NEGATIVE)
[2019-03-22 21:01] LABS: BARBITURATE, URINE NEG. ng/ml (NEG <=200); BENZODIAZEPINE, URINE NEG. ng/mL (NEG <=200); CANNABINOID, URINE NEG. ng/mL (NEG <=50); COCAINE, URINE NEG. ng/mL (NEG <=300); OPIATE, URINE NEG. ng/mL (NEG <=2000); PHENCYCLIDINE SCREEN,URINE NEG. ng/mL (NEG <=25)
[2019-03-22 21:05] LABS: RBC,URINE TOO NUMEROUS TO COUN /HPF (0-5); WBC,URINE 0-5 /HPF (0-5)
--- NOTE | 2019-03-22 22:00 | NUR ---
MADE ROUNDS . RESPIRATION EVEN, UNLABORED , NO FURTHER COMPLAIN MADE AT THIS TIME, CALL LIGHT WITHIN REACH .
[2019-03-22] MEDS ORDERED: BISACODYL 10 MG SUPP RC SCH (23:00)
[2019-03-22] MEDS ORDERED: SODIUM PHOSPHATE 118 ML ENEM RC SCH (23:00)
[2019-03-22] MEDS ORDERED: cefTRIAXone 1,000 MG VIAL ONE (23:31)
[2019-03-23] VITALS: BP 111/59
--- NOTE | 2019-03-23 | NUR ---
MADE ROUNDS V/S STABLE , NID , BEARABLE PAIN PT'S SAID AT THIS TIME , CALL LIGHT WITHIN REACH ,WILL CONTINUE TO MONITOR. MAINTAIN NPO.
--- NOTE | 2019-03-23 02:49 | NUR ---
MADE ROUNDS PT SLEEPING.
[2019-03-23 04:00] VITALS: BP 110/60
--- NOTE | 2019-03-23 04:00 | NUR ---
MADE ROUNDS . PT RESPIRATION EVEN AND UNLABORED , WITH BEARABLE PAIN SHE SAID . CALL LIGHT WITHIN REACH , WILL CONT. TO MONITOR.
--- NOTE | 2019-03-23 06:00 | NUR ---
MADE ROUNDS . PT IS SLEEPING.
[2019-03-23 07:00] LABS: ANION GAP 14.1 (8-16); CARBON DIOXIDE 23.2 mmol/L (21-32); CREATININE 0.6 mg/dL (0.6-1.3); POTASSIUM 3.3 mmol/L (3.5-5.1)
[2019-03-23 07:08] LABS: PHOSPHORUS 3.7 mg/dL (2.5-4.9)
[2019-03-23] MEDS ORDERED: BISACODYL 10 MG SUPP RC SCH (07:15)
[2019-03-23] MEDS ORDERED: SODIUM PHOSPHATE 118 ML ENEM RC ONE (07:15)
--- NOTE | 2019-03-23 07:30 | NUR ---
ENDORSED TO AM SHIFT NURSE FOR CONTINUITY OF CARE.
--- NOTE | 2019-03-23 07:30 | NUR ---
RECEIVED BEDSIDE REPORT FROM RAWHIDE TRIMMER NURSE. PATIENT IS SLEEPING ON BED AT THIS TIME. EVEN AND UNLABORED CHEST RISES NOTED, ON RA. NO SIGNS OF DISTRESS NOTED. IV ON L HAND 22, CLEAN AND DAY, INFUSING PER MD ORDER AT THIS TIME. SKIN CLEAN AND DRY. PATIENT IS CONTINENT AND ABLE TO AMBULATE INDEPENDENTLY. NPO INITIALED AND SIGN POSTED. SAFETY MEASURES IN PLACE. BED IN LOW POSITION AND CALL LIGHT WITHIN REACH.
[2019-03-23 08:00] VITALS: BP 102/64
[2019-03-23] MEDS ORDERED: POTASSIUM CHLORIDE 10 MEQ TABER PO SCH (08:10)
[2019-03-23 08:12] LABS: BASOPHILS % (AUTO) 0.6 % (0.0-2.0); EOSINOPHILS % (AUTO) 0.9 % (0.0-4.0); HEMATOCRIT 31.1 % (36-48); HEMOGLOBIN 10.1 g/dL (12.0-16.0); LYMPHOCYTES # (AUTO) 1.2 K/uL (2.5-16.5); LYMPHOCYTES % (AUTO) 31.6 % (20.5-51.1); MEAN CORPUSCULAR HEMOGLOBIN 26 pg (27-31); MEAN CORPUSCULAR HGB CONC 33 g/dL (33-37); MEAN CORPUSCULAR VOLUME 79.9 fL (80-94); MONOCYTES # (AUTO) 0.2 K/uL (0.8-1.0); MONOCYTES % (AUTO) 5.8 % (1.7-9.3); NEUTROPHILS # (AUTO) 2.4 K/uL (1.8-7.7); NEUTROPHILS % (AUTO) 61.1 % (42.2-75.2); PLATELET COUNT (AUTO) 218 K/uL (140-450); RED BLOOD CELL COUNT(AUTO) 3.89 MIL/uL (4.20-5.40); WHITE BLOOD COUNT (AUTO) 3.8 K/uL (4.8-10.8)
[2019-03-23] MEDS ORDERED: LACTOBACILLUS RHAMNOSUS GG 1 EACH CAP PO SCH (09:00)
--- NOTE | 2019-03-23 09:15 | NUR ---
PATIENT HAS BEEN SCREENED AND CATEGORIZED LOW NUTRITION RISK. PATIENT WILL BE SEEN WITHIN 7 DAYS OF ADMISSION. 03/29/[address]
[2019-03-23] MEDS: LACTOBACILLUS RHAMNOSUS GG 1 EACH CAP PO SCH (09:48)
[2019-03-23] MEDS: SIMETHICONE 80 MG TAB.CHEW PO SCH ×3 (09:49→17:16)
--- NOTE | 2019-03-23 09:50 | NUR ---
ADMINISTERED MEDS PER MD ORDER, PATIENT TOLERATED WELL. PATIENT IS SITTING UP ON BED AND DRINKING COFFEE. INSTRUCTED PATIENT TO AMBULATE AROUND THE [address] PER MD ORDER, PATIENT SAID " I WILL LATER, BUT NOT NOW." INSTRUCTED PATIENT TO USE THE HAT PLACED ON THE TOILET FOR OCCULT STOOL COLLECTION, PATIENT VERBALIZED UNDERSTANDING. PATIENT DENIED PAIN AND SOB AT THIS TIME. NO SIGNS OF DISTRESS NOTED. SAFETY MEASURES IN PLACE. BED IN LOW POSITION AND CALL LIGHT WITHIN REACH. INSTRUCTED PATIENT TO USE THE CALL LIGHT FOR ANY ASSISTANCE AND PATIENT WAS AWARE.
[2019-03-23] MEDS: NACL 0.9% 1,000 ML IV SCH (10:05)
--- NOTE | 2019-03-23 10:12 | NUR ---
DR ISLAS IS AT BEDSIDE AND TALKING TO PATIENT. NO SIGNS OF DISTRESS NOTED. SAFETY MEASURES IN PLACE. BED IN LOW POSITION AND CALL LIGHT WITHIN REACH.
[2019-03-23] MEDS: POLYETHYLENE GLYCOL 17 GM/PKT PO SCH ×2 (10:24→21:50)
--- NOTE | 2019-03-23 10:45 | NUR ---
PATIENT IS AMBULATING AROUND THE HALLWAY. NO SIGNS OF DISTRESS NOTED.
--- NOTE | 2019-03-23 11:15 | NUR ---
PATIENT IS RESTING ON BED AT THIS TIME. DENIED PAIN. NO SIGNS OF DISTRESS NOTED. SAFETY MEASURES IN PLACE. BED IN LOW POSITION AND CALL LIGHT WITHIN REACH. INSTRUCTED PATIENT TO USE THE CALL LIGHT FOR ANY ASSISTANCE AND PATIENT WAS AWARE.
--- NOTE | 2019-03-23 15:03 | NUR ---
SW attempted to conduct assessment with patient, but patient refused. SW/CM will follow up as needed.
--- NOTE | 2019-03-23 15:39 | NUR ---
PATIENT IS RESTING ON BED AT THIS TIME. NO SIGNS OF DISTRESS NOTED.SAFETY MEASURES IN PLACE. BED IN LOW POSITION AND CALL LIGHT WITHIN REACH. INSTRUCTED PATIENT TO USE THE CALL LIGHT FOR ANY ASSISTANCE AND PATIENT WAS AWARE.
[2019-03-23 16:00] VITALS: BP 98/57
--- NOTE | 2019-03-23 17:17 | NUR ---
PATIENT AWAKE AND SITTING UP ON BED. DENIED PAIN. NO SIGNS OF DISTRESS NOTED.SAFETY MEASURES IN PLACE. BED IN LOW POSITION AND CALL LIGHT WITHIN REACH. INSTRUCTED PATIENT TO USE THE CALL LIGHT FOR ANY ASSISTANCE AND PATIENT WAS AWARE.
--- NOTE | 2019-03-23 18:15 | NUR ---
PATIENT AWAKE AND RESTING ON BED. DENIED PAIN. NO SIGNS OF DISTRESS NOTED. SAFETY MEASURE IN PLACE. BED INLOW POSITION AND CALL LIGHT WITHIN REACH. INSTRUCTED PATIENT TO USE THE CALL LIGHT FOR ANY ASSISTANCE AND PATIENT WAS AWARE.
--- NOTE | 2019-03-23 19:18 | NUR ---
ENDORSED PATIENT AT BEDSIDE TO APPRENTICE PAINTER NECKTIES NURSE FOR CONTINUITY OF CARE. PATIENT IS RESTING ON BED AT THIS TIME. NO SIGNS OF DISTRESS NOTED. UNABLE TO COLLECT OCCULT BLOOD DURING SHIFT DUE TO PATIENT HAS NO BM, ENDORSED TO APPRENTICE PAINTER NECKTIES NURSE.
--- NOTE | 2019-03-23 19:19 | NUR ---
RECD. RESTING IN BED, SLEEPING COMFORTABLY, EASILY WAKES UP BUT SEEMS DROWSY. A/OX4, RESPIRATION EVEN AND UNLABORED. IV OS NS AT 60 ML/HR INFUSING, LEFT HAND G22. ABLE TO AMBULATE BY HERSELF. BED ON LOW POSITION, CALL LIGHT IN REACH. DENIES PAIN 0/10.
--- NOTE | 2019-03-23 20:30 | NUR ---
STILL SLEEPING COMFORTABLY IN BED.
[2019-03-23 21:24] LABS: ANION GAP 9.5 (8-16); CARBON DIOXIDE 27.1 mmol/L (21-32); CREATININE 0.6 mg/dL (0.6-1.3); POTASSIUM 4.6 mmol/L (3.5-5.1)
--- NOTE | 2019-03-23 21:50 | NUR ---
WAKEN UP TO DRINK MIRALAX, COOPERATIVE. REQUESTED TO SANDWICH, STATED "I AM VERY HUNGRY."
--- NOTE | 2019-03-23 22:00 | NUR ---
PUT A HAT IN THE TOILET BOWL, INSTRUCTED TO CALL NURSE WHEN HAVING BM. SEEMS NOT TO CARE, CONTINUED SLEEPING.
--- NOTE | 2019-03-23 22:20 | NUR ---
Patient's Plan of Care was discussed and reviewed with TIPPLE REPAIRER: LAURE WHITE
--- NOTE | 2019-03-24 | NUR ---
STILL SLEEPING COMFORTABLY IN BED.
[2019-03-24] MEDS: NACL 0.9% 1,000 ML IV SCH (03:03)
--- NOTE | 2019-03-24 04:00 | NUR ---
VOIDED X1 BUT NO BM YET.
--- NOTE | 2019-03-24 06:44 | NUR ---
STILL SLEEPING COMFORTABLY IN BED, NO BM YET. WILL ENDORSED TO AM NURSE FOR FOLLOW UP AND FOR CONTINUITY OF CARE.
--- NOTE | 2019-03-24 07:15 | NUR ---
RECEIVED BEDSIDE REPORT FROM CASE WORK AIDE NURSE. PATIENT IS SLEEPING ON BED AT THIS TIME. EVEN AND UNLABORED CHEST RISES NOTED, ON RA. NO SIGNS OF DISTRESS NOTED. IV ON L HAND 22, CLEAN AND DAY, INFUSING PER MD ORDER AT THIS TIME. SKIN CLEAN AND DRY. PATIENT IS CONTINENT AND ABLE TO AMBULATE INDEPENDENTLY. HAT FOR OCCULT STOOL PLACED ON TOILET. SAFETY MEASURES IN PLACE. BED IN LOW POSITION AND CALL LIGHT WITHIN REACH.
[2019-03-24 07:24] LABS: MAGNESIUM 1.8 mg/dL (1.8-2.4); PHOSPHORUS 3.7 mg/dL (2.5-4.9)
[2019-03-24] MEDS ORDERED: LACTULOSE 20 GM/30 ML UDC PO SCH (07:30)
[2019-03-24 07:34] LABS: ANION GAP 12.6 (8-16); CARBON DIOXIDE 24.6 mmol/L (21-32); CREATININE 0.6 mg/dL (0.6-1.3); POTASSIUM 4.2 mmol/L (3.5-5.1)
[2019-03-24 07:37] LABS: BASOPHILS % (AUTO) 0.7 % (0.0-2.0); EOSINOPHILS # (AUTO) 0.1 K/uL (0-0.4); EOSINOPHILS % (AUTO) 2.1 % (0.0-4.0); HEMATOCRIT 28.9 % (36-48); HEMOGLOBIN 9.3 g/dL (12.0-16.0); LYMPHOCYTES # (AUTO) 1.5 K/uL (2.5-16.5); LYMPHOCYTES % (AUTO) 39.2 % (20.5-51.1); MEAN CORPUSCULAR HEMOGLOBIN 26 pg (27-31); MEAN CORPUSCULAR HGB CONC 32 g/dL (33-37); MEAN CORPUSCULAR VOLUME 79.4 fL (80-94); MONOCYTES # (AUTO) 0.2 K/uL (0.8-1.0); MONOCYTES % (AUTO) 5.7 % (1.7-9.3); NEUTROPHILS % (AUTO) 52.3 % (42.2-75.2); PLATELET COUNT (AUTO) 225 K/uL (140-450); RED BLOOD CELL COUNT(AUTO) 3.64 MIL/uL (4.20-5.40); RED CELL DISTRIBUTION WIDTH 18.5 % (11.6-13.7); WHITE BLOOD COUNT (AUTO) 3.8 K/uL (4.8-10.8)
[2019-03-24 08:00] VITALS: BP 100/61
[2019-03-24] MEDS: SIMETHICONE 80 MG TAB.CHEW PO SCH (08:40)
[2019-03-24] MEDS: LACTOBACILLUS RHAMNOSUS GG 1 EACH CAP PO SCH (08:42)
[2019-03-24] MEDS ORDERED: MIRABULK PO (08:43)
--- NOTE | 2019-03-24 08:43 | NUR ---
ADMINISTERED MEDS PER MD ORDER, PATIENT TOLERATED WELL. PATIENT COMPLAINED 6/10 ABDOMINAL PAIN AND PATIENT IS CRYING. ADMINISTERED PRN PAIN MED NORCO PER MD ORDER, PATIENT IS RESTING ON BED AT THIS TIME. INSTRUCTED PATIENT TO USE THE HAT PLACED ON TOP OF THE TOILET WHEN SHE HAS A BM FOR OCCULT STOOL, AND PATIENT WAS AWARE. SAFETY MEASURES IN PLACE. BED IN LOW POSITION AND CALL LIGHT WITHIN REACH. INSTRUCTED PATIENT TO USE THE CALL LIGHT FOR ANY ASSISTANCE AND PATIENT WAS AWARE.
[2019-03-24] MEDS ORDERED: MAGNESIUM HYDROXIDE 2400 MG/30 ML UDC PO SCH (09:00)
[2019-03-24] MEDS ORDERED: POLYETHYLENE GLYCOL 17 GM/PKT PO SCH (09:00)
--- NOTE | 2019-03-24 09:12 | NUR ---
PATIENT IS AMBULATING AROUND THE HALLWAY. NO SIGNS OF DISTRESS NOTED.
[2019-03-24] MEDS ORDERED: SODIUM PHOSPHATE 118 ML ENEM RC SCH (09:30)
--- NOTE | 2019-03-24 09:59 | NUR ---
ADMINISTERED ENEMA PER MD ORDER, PATIENT TOLERATED WELL. INSTRUCTED PATIENT TO USE THE HAT PLACED ON TOP OF TOILET WHEN SHE HAS BM, PATIENT WAS AWARE. PATIENT AWAKE AND RESTING ON BED AT THIS TIME. SAFETY MEASURES IN PLACE. BED IN LOW POSITION AND CALL LIGHT WITHIN REACH. INSTRUCTED PATIENT TO USE THE CALL LIGHT FOR ANY ASSISTANCE AND PATIENT WAS AWARE.
--- NOTE | 2019-03-24 10:33 | NUR ---
INFORMED PATIENT THAT SHE WILL BE DC TODAY. AND PER PATIENT, HER FAMILY IS NOT ABLE TO PICK HER UP DUE TO THEY ARE AT WORK. SHE REQUESTS FOR BUS PASS. WILL NOTIFY [employer] FOR BUS PASS. PROVIDED SHOWER SUPPLIES TO PATIENT. PATIENT IS RESTING ON BED AT THIS TIME. NO SIGNS OF DISTRESS NOTED. SAFETY MEASURES IN PLACE. BED IN LOW POSITION AND CALL LIGHT WITHIN REACH. INSTRUCTED PATIENT TO USE THE CALL LIGHT FOR ANY ASSISTANCE AND PATIENT WAS AWARE.
[2019-03-24] MEDS ORDERED: MAGNESIUM CITRATE 300 ML BTL PO SCH (11:00)
--- NOTE | 2019-03-24 11:15 | NUR ---
PATIENT IS TAKING A SHOWER AT THIS TIME. PER PATIENT, SHE WOULD LIKE TO EAT LUNCH AND THEN DC.
--- NOTE | 2019-03-24 11:35 | NUR ---
PATIENT CAME BACK FROM THE SHOWER. NO SIGNS OF DISTRESS NOTED. SAFETY MEASURES IN PLACE. BED IN LOW POSITION AND CALL LIGHT WITHIN REACH. INSTRUCTED PATIENT TO USE THE CALL LIGHT FOR ANY ASSISTANCE AND PATIENT WAS AWARE.
--- NOTE | 2019-03-24 12:00 | NUR ---
PATIENT AWAKE AND RESTING ON BED. WAITING FOR LUNCH. NO SIGNS OF DISTRESS NOTED. SAFETY MEASURES IN PLACE. BED IN LOW POSITION AND CALL LIGHT WITHIN REACH. INSTRUCTED PATIENT TO USE THE CALL LIGHT FOR ANY ASSISTANCE AND PATIENT WAS AWARE.
[2019-03-24 12:09] LABS: FOLIC ACID 19.8 ng/mL (>3.0)
--- NOTE | 2019-03-24 12:14 | NUR ---
PATIENT IS EATING LUNCH AT THIS TIME. NO SIGNS OF DISTRESS NOTED. SAFETY MEASURES IN PLACE. BED IN LOW POSITION AND CALL LIGHT WITHIN REACH. INSTRUCTED PATIENT TO USE THE CALL LIGHT FOR ANY ASSISTANCE AND PATIENT WAS AWARE.
--- NOTE | 2019-03-24 12:30 | NUR ---
PATIENT FINISHED HER LUNCH AND CHANGING INTO HER OWN CLOTHES AT THIS TIME. NO SIGNS OF DISTRESS NOTED. SAFETY MEASURES IN PLACE.
--- NOTE | 2019-03-24 12:40 | NUR ---
DISCHARGE INSTRUCTION PROVIDED TO PATIENT AT BEDSIDE. EDUCATED PATIENT ON MD FOLLOW UP, DISEASE MANGEMENT, MEDICATION REGIMEN AND SIDE EFFECTS, AND DIET REGIMEN. ANSWERED ALL PATIENT'S QUESTIONS AND PATIENT VERBALIZED UNDERSTANDING. PER PATIENT, SHE WILL GREEN MARKETING SPECIALIST HER PRESCRIBED MEDICATION FROM HER PREFERRED PHARMACY [facility]. DC PATIENT IV AND CANNULA INTACT, NO BLEEDING ON IV SITE. PATIENT TOLERATED WELL. REMOVED ALL ARM BANDS. PATIENT CHECKED ALL THE CABINETS AND TOOK ALL HER BELONGINGS. PATIENT IS AAOX4, ABLE TO COMMUNICATE APPROPRIATELY AND ABLE TO PROVIDE CLEAR PATHWAY OF HOW TO TAKE THE BUS FROM HOSPITAL TO HER HOME. PER PATIENT, SHE WILL TAKE THE BUS HOME DUE TO HER FAMILY IS AT WORK NOW AND UNABLE TO PICK HER UP. BUS PASS PROVIDED TO PATIENT. ESCORTED PATIENT TO THE LOBBY. PATIENT IS IN STABLE CONDITION. PATIENT IS GOING TO DISCHARGE HOME AT THIS TIME.
== END 2019-03-24 12:40 | disposition home or self-care (01) | DRG 254 ==
LOC: MED 15:16 → MTU 17:45
PROVIDERS: ADMIT General Practice; ATTEND General Practice
DX: K59.00 Constipation, unspecified (principal); E87.8 Other disorders of electrolyte and fluid balance, not elsewhere classified; K75.3 Granulomatous hepatitis, not elsewhere classified; K56.7 Ileus, unspecified; D64.9 Anemia, unspecified; E86.0 Dehydration; N39.0 Urinary tract infection, site not specified; R31.9 Hematuria, unspecified; F15.10 Other stimulant abuse, uncomplicated; E87.6 Hypokalemia; N92.6 Irregular menstruation, unspecified; Z90.49 Acquired absence of other specified parts of digestive tract
CPT/HCPCS: 36415; 71045; 74018; 80048; 80053; 80305; 81001; 81025; 82150; 82607; 82728; 82746; 83036; 83540; 83605; 83690; 83735; 83880; 84100; 84439; 84443; 85025; 85045; 85610; 85730; 87081; 87086; 96361; 96374; 96375; 99285; J0696; J1885; J2270; J7030; J7060; Q0092

== ENCOUNTER 2021-04-24 23:50 | Emergency (ER) | payer MEDICAID ==
[~2021-04-24] VITALS: Ht 152.4 cm; Wt 61.2 kg
[~2021-04-24 23:50] MED LIST changes: -CEPH250C16 PO; +MIRABULK PO
[2021-04-24 23:55] VITALS: BP 113/76
--- NOTE | 2021-04-24 23:58 | NUR ---
TO LOBBY A/W BED AMBULATORY
--- NOTE | 2021-04-25 01:00 | NUR ---
PT CALLED IN LOBBY AND OUTSIDE, NO ANSWER
--- NOTE | 2021-04-25 01:15 | NUR ---
PT CALLED IN LOBBY AND OUTSIDE, NO ANSWER
--- NOTE | 2021-04-25 01:30 | NUR ---
PT CALLED IN LOBBY AND OUTSIDE, NO ANSWER
== END 2021-04-25 01:00 | disposition left against medical advice (07) ==
LOC: MED 23:50
DX: Z53.21 Procedure and treatment not carried out due to patient leaving prior to being seen by health care provider (principal); N64.4 Mastodynia; Z79.899 Other long term (current) drug therapy

== ENCOUNTER 2021-04-25 21:42 | Emergency (ER) | payer MEDICAID ==
[~2021-04-25] VITALS: Ht 152.4 cm; Wt 59.0 kg
[2021-04-25 21:45] VITALS: BP 117/72
--- NOTE | 2021-04-25 21:48 | NUR ---
TO LOBBY A/W BED AMBULATORY
--- NOTE | 2021-04-25 23:09 | NUR ---
PT AMB TO ER BED1
--- NOTE | 2021-04-25 23:10 | NUR ---
45 YO F BIB SELF FOR C/O L BREAST PAIN, PT STATES, PAIN STARTED X1 DAY AGO. PT DENIES FEVER OR CHILLS. DENIES TRAUMA. AMB WITH STEADY GAIT. PT CO 06/17 WITH FACIAL GRIMACING. SKIN INTACT. DENIES PRIOR MEDICAL HX. LMP: 04/02 NKA
[2021-04-25] MEDS ORDERED: ACETAMINOPHEN EXTRA STRENGTH 500 MG TAB PO ONE (23:55)
[2021-04-26 01:36] VITALS: BP 112/68
--- NOTE | 2021-04-26 01:36 | NUR ---
Patient discharged with v/s stable. Written and verbal after care instructions given and explained. Patient verbalized understanding. Ambulatory with steady gait. All questions addressed prior to discharge. Advised to follow up with PMD.
== END 2021-04-26 01:36 | disposition home or self-care (01) ==
LOC: MED 21:42
DX: N64.4 Mastodynia (principal); F15.10 Other stimulant abuse, uncomplicated
CPT/HCPCS: 76641; 99284

== ENCOUNTER 2021-09-27 23:45 | Emergency (ER) | payer MEDICAID ==
[~2021-09-27] VITALS: Ht 152.4 cm; Wt 59.0 kg
[2021-09-27 23:50] VITALS: BP 123/77
--- NOTE | 2021-09-27 23:53 | NUR ---
TO LOBBY A/W BED AMBULATORY
--- NOTE | 2021-09-28 01:50 | NUR ---
SEEN AND EXAMINED BY SHYANNE
[2021-09-28] MEDS ORDERED: KETOROLAC 60 MG/2 ML VIAL IM ONE (01:55)
[2021-09-28] MEDS ORDERED: ACET-8386 PO (02:10)
[2021-09-28] MEDS ORDERED: IBUP-2213 PO (02:10)
[2021-09-28 02:25] VITALS: BP 123/77
--- NOTE | 2021-09-28 02:25 | NUR ---
Patient discharged with v/s stable. Written and verbal after care instructions given and explained. Patient alert, oriented and verbalized understanding of instructions. Ambulatory with steady gait. All questions addressed prior to discharge. ID band removed. Patient advised to follow up with PMD. Rx of MOTRIN , NORCO given. Patient educated on indication of medication including possible reaction and side effects. Opportunity to ask questions provided and answered.
== END 2021-09-28 02:25 | disposition home or self-care (01) ==
LOC: MED 23:45
DX: M79.601 Pain in right arm (principal); X58.XXXA Exposure to other specified factors, initial encounter; Y93.89 Activity, other specified; Y92.89 Other specified places as the place of occurrence of the external cause; Y99.8 Other external cause status
CPT/HCPCS: 73130; 96372; 99283; J1885

== ENCOUNTER 2022-09-30 20:59 | Emergency (ER) | payer MEDICAID ==
[~2022-09-30] VITALS: Ht 152.4 cm; Wt 63.5 kg
[~2022-09-30 20:59] MED LIST changes: +ACET-8905 PO; +IBUP-2213 PO
[2022-09-30 21:13] VITALS: BP 121/72
--- NOTE | 2022-09-30 21:35 | NUR ---
PT WALKED TO BED 01
--- NOTE | 2022-09-30 21:55 | NUR ---
PT IS ALERT AND ORIENTED X 4, COMPLAINING ABOUT THE HEADCHE 10/10.
[2022-09-30 22:03] LABS: APPEARANCE,URINE CLEAR (CLEAR); BILIRUBIN,URINE NEGATIVE (NEGATIVE); BLOOD, URINE NEGATIVE (NEGATIVE); COLOR,URINE YELLOW (YELLOW); LEUKOCYTE ESTERASE ,URINE NEGATIVE (NEGATIVE); NITRITE, URINE NEGATIVE (NEGATIVE); PH,URINE 5.5 (5.0-9.0); UGLUCOSE NEGATIVE (NEGATIVE)
[2022-09-30] MEDS ORDERED: KETOROLAC 30 MG/ML VIAL IM ONE (22:15)
[2022-09-30] MEDS ORDERED: diphenhydrAMINE 50 MG CAP PO ONE (22:15)
[2022-09-30] MEDS ORDERED: PROCHLORPERAZINE 10 MG/2 ML VIAL IM ONE (22:15)
[2022-09-30] MEDS ORDERED: NAPR-54 PO (23:04)
[2022-10-01 00:01] VITALS: BP 121/72
--- NOTE | 2022-10-01 00:03 | NUR ---
Patient discharged with v/s stable. Written and verbal after care instructions given and explained. Patient verbalized understanding. Ambulatory with steady gait. All questions addressed prior to discharge. Advised to follow up with PMD. PT LEFT WITH HER BELONGINGS
== END 2022-10-01 00:01 | disposition home or self-care (01) ==
LOC: MED 20:59
DX: R51.9 Headache, unspecified (principal); F15.10 Other stimulant abuse, uncomplicated
CPT/HCPCS: 81003; 96372; 99284; J0780; J1885; Q0163

== ENCOUNTER 2022-10-05 14:51 | Emergency (ER) | payer MEDICAID ==
[~2022-10-05] VITALS: Ht 152.4 cm; Wt 69.9 kg
[~2022-10-05 14:51] MED LIST changes: +NAPR-54 PO
[2022-10-05 15:06] VITALS: BP 129/82
--- NOTE | 2022-10-05 15:14 | NUR ---
AFTER TRIAGE PATIENT STATED SHE NO LONGER WANTED TO BE SEEN
--- NOTE | 2022-10-05 15:14 | NUR ---
PATIENT LEFT WITHOUT BEING SEEN BY DR. RAMOS. NO FURTHER CARE PROVIDED FOR PATIENT.
== END 2022-10-05 15:14 | disposition left against medical advice (07) ==
LOC: MED 14:51
DX: R51.9 Headache, unspecified (principal); Z53.21 Procedure and treatment not carried out due to patient leaving prior to being seen by health care provider